=== PATIENT | male | born 1995 | race Caucasian/White ===

== ENCOUNTER 2019-01-15 19:55 | Emergency (ER) | payer OTHER ==
--- NOTE | 2019-01-15 20:31 | RAD ---
LEFT KNEE FOUR VIEWS: 01/15/10 HISTORY: Injury, left knee pain. FINDINGS/IMPRESSION: No fracture or dislocation is seen. POS: [facility]
== END 2019-01-15 21:03 | disposition home or self-care (01) ==
LOC: SCSER 19:55
DX: S83.92XA Sprain of unspecified site of left knee, initial encounter (principal); F41.0 Panic disorder [episodic paroxysmal anxiety]; X50.1XXA Overexertion from prolonged static or awkward postures, initial encounter